=== PATIENT | male | born 1990 | race Caucasian/White ===

== ENCOUNTER 2018-06-19 08:02 | Emergency (ER) | payer SELFPAY ==
--- NOTE | 2018-06-19 08:05 | UC ---
Back Pain HPI - HPI Summary HPI Summary: 28 yo gentleman c/o progressively worse lower neck pain x last couple days, worse this morning. Reports in triage that sx started a couple weeks ago, but now devin bad. 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 Pain in neck seems worse when arms are up, driving a steering wheel. Pain itself radiates upper back. No paresth / dys / weakness of either upper ext. No rash. No sob / cp / palpitations. No GI issues. No b/b issues / leakage. Also c/o progressively worse R knee pain. Hurts mostly after being in a bent position for a long period of time. Does not seem to be correlated with neck pain, but not sure. Ok if standing still. Pain mostly focused on ant med and ant lat regions, just next to patella. + swelling mild. No known recent trauma. [ End ] - History of Current Complaint Stated Complaint: NECK/BACK PAIN Hx Obtained From: Patient - Allergies/Home Medications Allergies/Adverse Reactions: Allergies Allergy/AdvReac Type Severity Reaction Status Date / Time No Known Allergies Allergy Verified 06/19/18 08:14 Home Medications: Home Medications Ibuprofen TAB* [Motrin TAB* 600 MG] 600 mg PO Q8H PRN 06/19/18 [History Confirmed 06/19/18] PMH/Surg Hx/FS Hx/Imm Hx Previously Healthy: Yes - Surgical History Surgical History: None - Family History Known Family History: Positive: Unknown - Social History Occupation: Employed Full-time Alcohol Use: Occasionally Substance Use Type: None Type: Smokeless Tobacco Amount Used/How Often: 1/2 can/day Length of Time of Smoking/Using Tobacco: 8 years Have You Smoked in the Last Year: No Review of Systems Constitutional: Negative Skin: Negative Eyes: Negative ENT: Negative Respiratory: Negative Cardiovascular: Negative Gastrointestinal: Negative Genitourinary: Negative Motor: Other - see hpi Neurovascular: Other Musculoskeletal: Other: Neurological: Negative Psychological: Negative Is Patient Immunocompromised?: No All Other Systems Reviewed And Are Negative: Yes Physical Exam Triage Information Reviewed: Yes Appearance: Well-Nourished Vital Signs Reviewed: Yes ENT: Positive: Other - L cerumen impaction O/w ENT grossly benign Neck exam: Other - tender mid lower cervical spine region, extends to upper t spine area. Without crepitus, deformity. +mild spasm. Tender R ant knee just med and lat to patella. Mild swelling. No post knee tendernes. Respiratory Exam: Normal Respiratory: Positive: Chest non-tender, Lungs clear, Normal breath sounds, No respiratory distress, No accessory muscle use Cardiovascular Exam: Normal Cardiovascular: Positive: RRR, No Murmur, Pulses Normal - incl palp dp and r/u pulses, Brisk Capillary Refill Musculoskeletal Exam: Other - see neck Neurological Exam: Normal - CN 2-12 grossly intact. No smell c/o. Distal x 4 ext sens LT present, inc + ax n present Bilat. Able to walk without wobbly / unsteady. Distal gross and fine strength 5/5 bilat upper and lower ext No b/b c/o Psychological Exam: Normal - conversing easily and appropriately Skin Exam: Normal - no visible or reported rash Back Pain Course/Dx - Course Course Of Treatment: REviewed xrays and reports. + evidence djd, neck (in report) and lordotic straightening, also djd thoracic. Knee xray nad. Declines soft collar. Cerumen flushed by rn - improved. Encourage need for f/ u pcp. Will refer to orthopedics re R knee as well. Likely mechanical (ie doubt infectious). Questions as posed answered to the best of my ability. - Differential Dx/Diagnosis Provider Diagnoses: Cervicalgia. DJD. R knee pain, etiology unclear Discharge - Discharge Plan Condition: Stable Disposition: HOME Prescriptions: Cyclobenzaprine TAB* [Flexeril 10 MG TAB*] 10 mg PO TID PRN #21 tab PRN Reason: Spasms Ibuprofen TAB* [Motrin TAB* 600 MG] 600 mg PO Q8H PRN #30 tab PRN Reason: Pain Patient Education Materials: Cerumen Impaction (ED), Knee Pain (ED), Neck Pain (ED) Forms: *Work Release Referrals: Yoon Villavicencio MD [Primary Care Provider] - Maggie Larkin MD [Medical Doctor] - Additional Instructions: Follow up with Dr. Keith early this week. Call today for appointment. Follow up orthopedist in the next week re knee pain. You will need further evaluation for your discomfort, as such important to follow up with your doctor. Meanwhile, seek medical attention for worse or new problems. Do not drive while taking muscle relaxants. - Billing Disposition and Condition Condition: STABLE Disposition: Home
[2018-06-19 08:19] VITALS: BP 130/55
--- NOTE | 2018-06-19 09:09 | RAD ---
HISTORY: neck pain progress worse x 2 days no known trauma COMPARISONS: August 28, 2011 VIEWS: 5, Frontal, lateral, open-mouth odontoid, and bilateral oblique views of the cervical spine. FINDINGS: The cervical spine is visualized from the skull base through T1. ALIGNMENT: There is straightening of the normal cervical lordosis. VERTEBRAL BODIES: The odontoid process is intact. The atlantoaxial intervals are symmetric. JOINTS: There is no subluxation or dislocation. The facet joints are unremarkable. On the oblique views, there is no osseous neural foraminal narrowing. INTERVERTEBRAL DISCS: There is minimal diffuse loss of intervertebral disc height. SOFT TISSUE: The prevertebral soft tissues are normal. OTHER: The skull base is normal. The lung apices are clear. IMPRESSION: STRAIGHTENING OF THE CERVICAL LORDOSIS.
--- NOTE | 2018-06-19 09:10 | RAD ---
HISTORY: low neck upper back pain x 2 days no known trauma COMPARISONS: None VIEWS: 2, Frontal and lateral views of the thoracic spine. FINDINGS: ALIGNMENT: The alignment is normal. VERTEBRAL BODIES: The vertebral body heights are normal. The interpedicular distances are normal. JOINTS: Unremarkable. INTERVERTEBRAL DISCS: There is mild diffuse loss of intervertebral disc height. SOFT TISSUE: Unremarkable OTHER: The visualized lungs are clear. IMPRESSION: MILD DEGENERATIVE DISC DISEASE.
--- NOTE | 2018-06-19 09:10 | RAD ---
HISTORY: pain R knee no known trauma COMPARISONS: None VIEWS: 4, Frontal, lateral, axial, and oblique views of the right knee FINDINGS: BONE DENSITY: Normal. BONES: There is no displaced fracture. JOINTS: There is no arthropathy. There is no suprapatellar joint effusion or lipohemarthrosis. ALIGNMENT: There is no dislocation. SOFT TISSUES: Unremarkable. OTHER FINDINGS: None. IMPRESSION: NO ACUTE OSSEOUS INJURY. IF SYMPTOMS PERSIST, RECOMMEND REPEAT IMAGING.
== END 2018-06-19 10:36 | disposition home or self-care (01) ==
LOC: UCCORT 08:02
DX: M54.2 Cervicalgia (principal); M19.90 Unspecified osteoarthritis, unspecified site; M25.561 Pain in right knee; F17.221 Nicotine dependence, chewing tobacco, in remission; M51.34 Other intervertebral disc degeneration, thoracic region
CPT/HCPCS: 72050; 72070; 99203; G0463